=== PATIENT | female | born 1985 | race American Indian/Alaskan Native ===

== ENCOUNTER 2021-01-16 18:20 | Emergency (ER) | payer SELFPAY ==
[2021-01-16 21:35] LABS: Basophils % (Auto) 0.5 % (0.0-1.8); Eosinophils # (Auto) 0.1 K/mm3 (0.0-0.4); Eosinophils % (Auto) 1.7 % (0.0-4.3); Hematocrit 32.1 % (30.3-42.9); Hemoglobin 10.4 gm/dl (10.1-14.3); Lymphocytes % (Auto) 36.8 % (13.4-35.0); Mean Corpuscular HGB Conc 32 % (30-34); Mean Corpuscular Volume 78 fl (79-97); Monocytes # (Auto) 0.3 K/mm3 (0.0-0.8); Monocytes % (Auto) 6.2 % (0.0-7.3); Platelet Count 253 K/mm3 (140-440); Red Blood Count 4.12 M/mm3 (3.65-5.03); Red Cell Distribution Width 17.5 % (13.2-15.2)
[2021-01-16 22:02] LABS: Alanine Aminotransferase 11 units/L (7-56); Albumin 3.6 g/dL (3.9-5); Blood Urea Nitrogen 13 mg/dL (7-17); Calcium 8.5 mg/dL (8.4-10.2); Hemolysis Index 8
[2021-01-16 22:03] LABS: BUN/Creatinine Ratio 19
--- NOTE | 2021-01-16 22:11 | XRay Report ---
CHEST 2 VIEWS INDICATION / CLINICAL INFORMATION: CP. COMPARISON: None available. FINDINGS: SUPPORT DEVICES: None. HEART / MEDIASTINUM: No significant abnormality. LUNGS / PLEURA: No significant pulmonary or pleural abnormality. No pneumothorax. ADDITIONAL FINDINGS: No significant additional findings. IMPRESSION: 1. No acute findings. Signer Name: Jama Grant MD Signed: 01/16/2021 10:06 PM Workstation Name: [id number]
--- NOTE | 2021-01-17 11:02 | Emergency Department Report ---
ED Chest Pain HPI - General Chief Complaint: Chest Pain Stated Complaint: TIGHTNESS OF CHEST Time Seen by Provider: 01/17/21 10:50 Source: patient Mode of arrival: Ambulatory Limitations: No Limitations - History of Present Illness Initial Comments: This is a 35-year-old -[place] female presents to the emergency department with a complaint of some midsternal to left-sided chest pain that started yesterday while she was at work. Initially she said that she stretched and felt a pop in the middle of her chest and began having chest discomfort at that time. The patient says "I think it is my muscles." However, she also describes some secondary type of chest pain/discomfort that began later that evening, but that has since resolved. Patient took some aspirin with some improvement in her symptoms. She denies any past medical history. Her father had an OK in his 50s. She denies any tobacco or illicit drug use. No recent travel or sick contacts at home. She denies any fever, lower extremity swelling, shortness of breath, nausea, vomiting, back pain or diaphoresis. - Related Data Previous Rx's Medication Instructions Recorded Last Taken Type Ibuprofen [Motrin 800 MG tab] 800 mg PO Q8HR PRN #20 tablet 01/17/21 Unknown Rx Allergies Allergy/AdvReac Type Severity Reaction Status Date / Time No Known Allergies Allergy Unverified 01/16/21 20:42 Heart Score - HEART Score History: Slightly suspicious EKG: Normal Age: < 45 Risk factors: 1-2 risk factors Troponin: < normal limit HEART Score: 1 - EKG Read Time Time EKG Completed: 20:30 EKG Read Time: 20:31 ED Review of Systems ROS: Stated complaint: TIGHTNESS OF CHEST Other details as noted in HPI Comment: All other systems reviewed and negative Constitutional: denies: chills, fever Eyes: denies: eye pain, vision change ENT: denies: ear pain, throat pain Respiratory: denies: cough, shortness of breath Cardiovascular: chest pain. denies: palpitations Gastrointestinal: denies: abdominal pain, vomiting Genitourinary: denies: dysuria, discharge Musculoskeletal: denies: back pain, arthralgia Skin: denies: rash, lesions Neurological: denies: headache, weakness ED Past Medical Hx - Past Medical History Previous Medical History?: No - Surgical History Past Surgical History?: No - Social History Smoking Status: Former Smoker Substance Use Type: None - Medications Home Medications: Home Medications Medication Instructions Recorded Confirmed Last Taken Type Ibuprofen [Motrin 800 MG tab] 800 mg PO Q8HR PRN #20 tablet 01/17/21 Unknown Rx ED Physical Exam - General Limitations: No Limitations - Other Other exam information: GENERAL: The patient is well-developed well-nourished. HENT: Normocephalic. Atraumatic. Patient has moist mucous membranes. EYES: Extraocular motions are intact. NECK: Supple. Trachea is midline. CHEST/LUNGS: Clear to auscultation. There is no respiratory distress noted. There is some reproducible midsternal to left-sided chest wall tenderness to palpation. No crepitus or deformity. HEART/CARDIOVASCULAR: Regular. There is no tachycardia. There is no murmur. ABDOMEN: Abdomen is soft, nontender. Patient has normal bowel sounds. Obese habitus. SKIN: Skin is warm and dry. NEURO: The patient is awake, alert, and oriented. The patient is cooperative. The patient has no focal neurologic deficits. Normal speech. MUSCULOSKELETAL: There is no tenderness or deformity. There is no limitation range of motion. ED Course Vital Signs 01/16/21 01/17/21 01/17/21 20:26 11:27 11:31 Temperature 98.2 F Pulse Rate 77 56 L Respiratory 18 19 15 Rate Blood Pressure 143/72 124/58 O2 Sat by Pulse 99 100 100 Oximetry 01/17/21 11:45 Temperature Pulse Rate 54 L Respiratory 19 Rate Blood Pressure 124/58 O2 Sat by Pulse 100 Oximetry MARIA FERNANDA score - Maria Fernanda Score Age > 65: (0) No Aspirin use within the Past 7 Days: (0) No 3 or more CAD Risk Factors: (0) No 2 or more Angina events in past 24 hrs: (1) Yes Known CAD with more than 50% Stenosis: (0) No Elevated Cardiac Markers: (0) No ST Deviation Greater than 0.5mm: (0) No MARIA FERNANDA Score: 1 ED Medical Decision Making - Lab Data Result diagrams: 01/16/21 20:57 01/16/21 20:57 Lab Results 01/16/21 01/16/21 01/16/21 Range/Units 20:57 20:57 23:58 WBC 5.5 (4.5-11.0) K/mm3 RBC 4.12 (3.65-5.03) M/mm3 Hgb 10.4 (10.1-14.3) gm/dl Hct 32.1 (30.3-42.9) % MCV 78 L (79-97) fl MCH 25 L (28-32) pg MCHC 32 (30-34) % RDW 17.5 H (13.2-15.2) % Plt Count 253 (140-440) K/mm3 Lymph % (Auto) 36.8 H (13.4-35.0) % Meade % (Auto) 6.2 (0.0-7.3) % Eos % (Auto) 1.7 (0.0-4.3) % Baso % (Auto) 0.5 (0.0-1.8) % Lymph # (Auto) 2.0 (1.2-5.4) K/mm3 Meade # (Auto) 0.3 (0.0-0.8) K/mm3 Eos # (Auto) 0.1 (0.0-0.4) K/mm3 Baso # (Auto) 0.0 (0.0-0.1) K/mm3 Seg Neutrophils % 54.8 (40.0-70.0) % Seg Neutrophils # 3.0 (1.8-7.7) K/mm3 Sodium 140 (137-145) mmol/L Potassium 4.5 (3.6-5.0) mmol/L Chloride 106.8 (98-107) mmol/L Carbon Dioxide 24 (22-30) mmol/L Anion Gap 14 mmol/L BUN 13 (7-17) mg/dL Creatinine 0.7 (0.6-1.2) mg/dL Estimated GFR > 60 ml/min BUN/Creatinine Ratio 19 % Glucose 98 (65-100) mg/dL Calcium 8.5 (8.4-10.2) mg/dL Total Bilirubin 0.20 (0.1-1.2) mg/dL AST 15 (5-40) units/L ALT 11 (7-56) units/L Alkaline Phosphatase 83 (35-129) units/L Troponin T < 0.010 < 0.010 (0.00-0.029) ng/mL Total Protein 7.0 (6.3-8.2) g/dL Albumin 3.6 L (3.9-5) g/dL Albumin/Globulin Ratio 1.1 % - EKG Data -: EKG Interpreted by Me EKG shows normal: sinus rhythm, axis, intervals, QRS complexes, ST-T waves Rate: normal - EKG Data When compared to previous EKG there are: previous EKG unavailable Interpretation: normal EKG - Radiology Data Radiology results: image reviewed interpreted by me: Chest x-ray does not show any acute process. There are no pleural effusions, obvious pneumonia and there is no pneumothorax. No significant cardiomegaly. - Medical Decision Making This patient presents to the emergency department with a complaint of some chest pain that started last night. On examination the patient has normal sounding heart and lungs to auscultation and does not appear in any respiratory or acute distress. Her chest pain is reproducible to palpation of the chest wall without any obvious crepitus or deformity. EKG does not have any morphology consistent with ST elevation myocardial infarction. Chest x-ray does not have any evidence of pneumonia, pleural effusions, pneumothorax, or any other acute process. Labs have been mostly unremarkable including CBC, metabolic panel and negative troponins x2. Patient is low on the heart and MARIA FERNANDA score. She is low on the Wells score criteria, and negative on the pulmonary embolism rule out criteria. For all these reasons the patient appears safe for discharge home at this time. Her contact information has been sent over to the [facility], and someone from their office should be contacting her shortly for close outpatient follow-up as part of our [facility] low risk chest pain protocol. Critical Care Time: No Critical care attestation.: If time is entered above; I have spent that time in minutes in the direct care of this critically ill patient, excluding procedure time. ED Disposition Clinical Impression: Chest pain Qualifiers: Chest pain type: unspecified Qualified Code(s): R07.9 - Chest pain, unspecified Disposition: DC-01 TO HOME OR SELFCARE Is pt being admited?: No Condition: Stable Instructions: Nonspecific Chest Pain, Adult, Chest Wall Pain Additional Instructions: Please follow-up with a primary care physician in the next few days. I am sending your contact information over to the [facility] vascular [facility]inence, and someone from their office should be contacting you shortly for close outpatient follow-up. Just in case, I am giving you a referral for one of their fixed income director, Dr. Kendrick. Return to the emergency department with any worsening of your symptoms, new or concerning symptoms not addressed during this current emergency department visit, or with any acute distress. Prescriptions: Ibuprofen [Motrin 800 MG tab] 800 mg PO Q8HR PRN #20 tablet PRN Reason: Pain , Severe (7-10) Referrals: PRIMARY CARE, [Primary Care Provider] - 2-3 Days KATE KENDRICK MD [Staff Physician] - 2-3 Days Time of Disposition: 11:02
[2021-01-17 11:40] VITALS: BP 124/58
--- NOTE | 2021-01-17 17:53 | Electrocardiograph Report ---
[facility] Test Date: 2021-01-16 Test Time: 20:30:31 Pat Name: PADDY RAY Department: Room: Gender: F Program Rep: JEISON : 1985 Requested By: ERIC LEUNG III Order Number: [id number] Reading MD: Eusebio aB Measurements Intervals [place] Rate: 73 P: 73 PA: 164 QRS: 64 QRSD: 95 T: 63 QT: 383 QTc: 424 Interpretive Statements Sinus rhythm No previous ECG available for comparison Electronically Signed On 01-17-2021 17:53:32 EDT by Eusebio Ba
== END 2021-01-17 12:15 | disposition home or self-care (01) ==
LOC: ED 18:20
DX: R07.89 Other chest pain (principal); Z87.891 Personal history of nicotine dependence; Z79.899 Other long term (current) drug therapy
CPT/HCPCS: 36415; 71046; 80053; 84484; 85025; 93005; 99283